=== PATIENT | female | born 1995 | race Caucasian/White ===

== ENCOUNTER 2019-09-15 23:35 | Emergency (ER) | payer OTHER ==
[2019-09-15 23:45] VITALS: BP 111/69; PULSE 84; TEMP 98.1; BMI 24.0
--- NOTE | 2019-09-16 00:04 | PDOC ---
History of Present Illness - General Chief Complaint: Seizure Stated Complaint: SEIZURE Time Seen by Provider: 09/16/19 00:03 History Source: Patient, Friend Exam Limitations: No Limitations - History of Present Illness Initial Comments: 24 y.o female with hx/o seizures, not on anti-epileptics, presents to the ED after a seizure. She self reports seizures once a year, usually occuring following etoh ingestion. She reports drinking 5 glasses of wine and smoking hookah, and suddenly felt SOB, loss of motor control and fell to the ground without LOC and unsure whether she hit her head. She reports biting her tongue without loss of urine. Her friend, who was at bedside, reports seeing the patient "convulsing", for about 5 minutes while they called EMS. The patient reports feeling confused and nausea/vomiting afterwards. She reports pain at her right hand that hit staircase railing while falling, currently denies CP, SOB, n/v, numbness/weakness/tingling or confusion. PMH: as in HPI SH: none Meds: none Allergies: none Tob/Etoh/Rec drugs: hookah, 5 glasses of wine tonight, no other rec drugs PCP: Dr. Jalil HOWELL GENERAL/CONSTITUTIONAL: No fever or chills. No weakness. HEENT: No change in vision. CARDIOVASCULAR: No chest pain or shortness of breath RESPIRATORY: No cough GASTROINTESTINAL: No nausea, vomiting, diarrhea or constipation. GENITOURINARY: No dysuria, frequency, or change in urination. MUSCULOSKELETAL: Right 3rd MCP pain and swelling. No neck or back pain. SKIN: No rash NEUROLOGIC: No headache, vertigo, LOC, or change in strength/sensation. PE GENERAL: Awake, alert, and fully oriented, in no acute distress HEAD: No signs of trauma, NC/AT EYES: PERRLA, EOMI, sclera anicteric, conjunctiva clear ENT: Auricles normal inspection, hearing grossly normal, nares patent, oropharynx clear without exudates. Moist mucosa, no mouth or tongue trauma/lacerations NECK: Normal ROM, supple, no lymphadenopathy, JVD, or masses HEART: Regular rate and rhythm, normal S1 and S2, no murmurs, rubs or gallops, peripheral pulses normal and equal bilaterally. LUNGS: No distress, speaks full sentences, clear to auscultation bilaterally ABDOMEN: Soft, nontender, normoactive bowel sounds. No guarding, no rebound. No masses EXTREMITIES: Normal inspection, Normal range of motion, no edema. No clubbing or cyanosis. NEUROLOGICAL: CNII-XII intact. Normal speech, normal gait, no focal sensorimotor deficits Assessment and Plan 1. Syncope 2/2 etoh 2. Seizure 3. r/o arrythmia 4. r/o fracture right hand Adalberto Hansen, PGY1 Emergency Medicine Past History - Medical History Allergies/Adverse Reactions: Allergies Allergy/AdvReac Type Severity Reaction Status Date / Time No Known Allergies Allergy Verified 09/15/19 23:45 - Psycho-Social/Smoking History Smoking History: Current some day smoker Have you smoked in the past 12 months: Yes Number of Cigarettes Smoked Daily: 2 Information on smoking cessation initiated: No - Substance Abuse Hx (Audit-C & DAST Scrn) How often the patient has a drink containing alcohol: Monthly or less How often the patient has six or more drinks on one occasion: Less than monthly Score: In Men: 4 or > Positive; In Women: 3 or > Positive: 2 Screen Result (Pos requires Nsg. Audit-10AR): Negative In the last yr the pt used illegal drug/Rx for NonMed reason: No Score: Yes response is considered Positive: 0 Screen Result (Positive result requires Nsg. DAST-10): Negative *Physical Exam - Vital Signs Last Vital Signs Temp Pulse Resp BP Pulse Ox 98.1 F 84 20 111/69 99 09/15/19 23:40 09/15/19 23:40 09/15/19 23:40 09/15/19 23:40 09/15/19 23:40 Medical Decision Making - Medical Decision Making 24 y.o female with hx/o seizures, not on anti-epileptics, presents to the ED after a seizure. She self reports seizures once a year, usually occuring following etoh ingestion. Physical exam was remarkable for right hand swelling and tenderness, otherwise benign with intact neuro exam. Patient refused blood work but agreed to EKG, CT Head, and right hand xray, which were unremarkable. Patient refused further workup and signed AMA. Discharge - Discharge Information Problems reviewed: Yes Clinical Impression/Diagnosis: Seizure Condition: Stable Disposition: AGAINST MEDICAL ADVICE - Admission No - Follow up/Referral Referrals: Doyle Jimenes MD [Primary Care Provider] - - Patient Discharge Instructions - Post Discharge Activity
--- NOTE | 2019-09-16 01:02 | PDOC ---
Documentation entered by Mahesh Sorensen SCRIBE, acting as scribe for Brent Rod MD. Brent Rod MD: This documentation has been prepared by the Edu flores Nirvannie, SCRIBE, under my direction and personally reviewed by me in its entirety. I confirm that the documentation accurately reflects all work, treatment, procedures, and medical decision making performed by me. Attending Attestation - Resident Resident Name: Adalberto Hansen - ED Attending Attestation I have performed the following: I have examined & evaluated the patient, The case was reviewed & discussed with the resident, I agree w/resident's findings & plan, Exceptions are as noted - HPI HPI: 09/16/19 00:48 The patient is a 24 year old female with a significant past medical history of seizure disorder (not on meds) who presents to the ED for possible seizure. As per patient, she was drinking with her friends olena. Pt states she felt "weird", as if she was going to have a seizure. Pt then fell to the ground. She states she thinks she had a seizure, although she states she was conscious the entire episode. Pt was on the ground for approx 5 minutes. Friend states that she did not exhibit any shaking movement. Pt braced her fall with her hands. Pt denies LOC. She denies any urinary or bowel incontinence. Pt currently has no complaints other than pain in her R hand. Allergies: NKDA Primary Care Physician: Dr. Jimenes - Physicial Exam PE: 09/16/19 01:06 "GENERAL: Awake, alert, and fully oriented, in no acute distress. HEAD: No signs of trauma EYES: PERRLA, EOMI, sclera anicteric, conjunctiva clear ENT: Auricles normal inspection, hearing grossly normal, nares patent, oropharynx clear without exudates. Moist mucosa NECK: Nontender, no stepoffs, Normal ROM, supple, no lymphadenopathy, JVD, or masses LUNGS: Breath sounds equal, clear to auscultation bilaterally. No wheezes, and no crackles HEART: Regular rate and rhythm, normal S1 and S2, no murmurs, rubs or gallops ABDOMEN: Soft, nontender, normoactive bowel sounds. No guarding, no rebound. No masses EXTREMITIES: + R hand swelling and pain, Normal range of motion, no edema. No clubbing or cyanosis. No cords, erythema, or tenderness NEUROLOGICAL: Cranial nerves II through XII intact. 5/5 strength and sensation in all extremities, Normal speech, normal gait, normal cerebellar function SKIN: Warm, Dry, normal turgor, no rashes or lesions noted. - Medical Decision Making 09/16/19 01:07 24 F with ?seizure. Pt with no LOC, making true seizure unlikely. Suspect that pt fell while intoxicated. Pt currently awake and fully oriented, with no neuro deficits. Not currently post-ictal. Pt's friend at bedside corroborates that pt is at her baseline mentation. - CT head - XR R hand Pt refusing labwork at this time, stating that she does not want to wait for results. She states that she has an appointment with Dr. Jimenes soon and will have him refer her to a neurologist. Pt is clinically sober at this time, appears to have capacity to make decisions. The patient is clinically sober, free from distracting injury, appears to have intact insight and judgment and reason and in my opinion has the capacity to make decisions. The patient presented with possible seizure. I have discussed the need for bloodwork and possible neurology consultation to get more information about potential causes of the patients seizure. I have told the patient that if they leave, they could get much worse, could become critically ill, and could possibly become disabled or . The patient is not willing to await bloodwork. She is refusing any further care and is leaving against medical advice. I am unable to convince the patient to stay, I have asked them to return as soon as possible to complete their evaluation. I have answered all their questions. Discharge - Discharge Information Problems reviewed: Yes Clinical Impression/Diagnosis: Seizure Condition: Stable Disposition: AGAINST MEDICAL ADVICE - Follow up/Referral Referrals: Doyle Jimenes MD [Primary Care Provider] - - Patient Discharge Instructions - Post Discharge Activity
[2019-09-16 01:15] LABS: PH,URINE 5.5 (5.0-8.0); URINE APPEARANCE CLOUDY; URINE BILIRUBIN NEGATIVE (NEGATIVE); URINE COLOR YELLOW; URINE GLUCOSE (UA) NEGATIVE (NEGATIVE); URINE KETONE 1+ (NEGATIVE); URINE LEUK ESTERASE NEGATIVE (NEGATIVE); URINE NITRITE NEGATIVE (NEGATIVE); URINE PROTEIN NEGATIVE (NEGATIVE); URINE UROBILINOGEN 0.2 mg/dL (0.2-1.0)
--- NOTE | 2019-09-16 09:08 | EKG ---
Test Reason : Blood Pressure : / mmHG Vent. Rate : 097 BPM Atrial Rate : 097 BPM P-R Int : 172 ms QRS Dur : 072 ms QT Int : 324 ms P-R-T Axes : 040 054 045 degrees QTc Int : 411 ms NORMAL SINUS RHYTHM NORMAL ECG NO PREVIOUS ECGS AVAILABLE Confirmed by Calderon Taylor ([id number]) on 09/16/2019 9:08:22 AM Referred By: Confirmed By:Calderon Taylor
== END 2019-09-16 02:23 | disposition left against medical advice (07) ==
LOC: JER 23:35
DX: R56.9 Unspecified convulsions (principal)
CPT/HCPCS: 70450-TC; 73130-TC-RT-FY; 81003; 84703; 93005; 93010; 99285-25